=== PATIENT | female | born 1980 | race Caucasian/White ===

== ENCOUNTER 2016-11-22 04:30 | Outpatient (CLI) | payer BC ==
[~2016-11-22] VITALS: Ht 160 cm; Wt 68.7 kg
[2016-11-22 04:51] VITALS: BP 112/74; PULSE 103; RESP 18
[2016-11-22] MEDS ORDERED: LACTATED RINGER'S 1,000 ML IV ONE (05:30)
[2016-11-22 05:47] LABS: ADD SCAN DIFF NO
[2016-11-22 05:56] LABS: BASOPHILS % 0.3 % (0.0-2.0); EOSINOPHILS # 0.1 10^3/ul (0.0-0.5); EOSINOPHILS % 0.7 % (0.0-7.0); HEMATOCRIT 36.2 % (37.0-47.0); HEMOGLOBIN 12.3 g/dl (12.0-16.0); LYMPHOCYTES # 1.1 10^3/ul (0.8-2.9); LYMPHOCYTES % 9.3 % (15.0-51.0); MEAN CORPUSCULAR HEMOGLOBIN 30.6 pg (29.0-33.0); MEAN PLATELET VOLUME 10.4 fl (7.4-10.4); MONOCYTE # 0.6 10^3/ul (0.3-0.9); MONOCYTES % 5.4 % (0.0-11.0); NEUTROPHIL # 9.9 10^3/ul (1.6-7.5); NEUTROPHILS % 83.5 % (39.0-77.0); PLATELET COUNT 253 10^3/UL (140-415); RED BLOOD COUNT 4.02 10^6/ul (4.20-5.40); RED CELL DISTRIBUTION WIDTH 13.2 % (11.5-14.5); WHITE BLOOD COUNT 11.9 10^3/ul (4.8-10.8)
[2016-11-22] MEDS ORDERED: LACTATED RINGER'S 1,000 ML IV SCH (06:00)
[2016-11-22] MEDS ORDERED: ONDANSETRON INJ 8 MG in DEXTROSE 5% 50 ML IV PRN (06:00)
[2016-11-22 06:10] LABS: ALBUMIN 3.4 g/dl (3.3-4.9)
[2016-11-22 06:11] LABS: POTASSIUM 3.5 mmol/L (3.5-5.1)
[2016-11-22 06:13] LABS: ALBUMIN/GLOBULIN RATIO 0.89; BILIRUBIN,INDIRECT 0.3 mg/dl (0-1.1); BILIRUBIN,TOTAL 0.3 mg/dl (0.2-1.3); CREATININE 0.49 mg/dl (0.44-1.00); TOTAL PROTEIN 7.2 g/dl (6.1-8.1)
[2016-11-22 06:14] LABS: CALCIUM 8.9 mg/dl (8.4-10.2)
[2016-11-22 06:19] LABS: ADD UMIC YES; URINE BILIRUBIN (Dip) NEGATIVE (NEGATIVE); URINE BLOOD (Dip) NEGATIVE (NEGATIVE); URINE COLOR YELLOW (YELLOW); URINE GLUCOSE (Dip) NEGATIVE (NEGATIVE); URINE KETONES (Dip) 15 (NEGATIVE); URINE LEUKOCYTE ESTERASE (Dip) TRACE (NEGATIVE); URINE NITRITE (Dip) NEGATIVE (NEGATIVE); URINE TOTAL PROTEIN (Dip) TRACE (NEGATIVE); URINE UROBILINOGEN (Dip) 1.0 E.U./dL (0.1-1.0)
[2016-11-22 07:15] LABS: BACTERIA,URINE FEW; MUCUS,URINE FEW; URINE RBCS NONE SEEN /HPF (0)
--- NOTE | 2016-11-22 08:18 | RADRPT ---
PROCEDURE: US OB. CLINICAL INDICATION: labor. BRAULIO. TECHNIQUE: Multiple sonographic images of the pelvis were obtained. Transabdominal imaging only w as performed. The images were reviewed on a PACS workstation. COMPARISON: None available. FINDINGS: The cervix is closed with a length of 3.7 cm. There is a single viable intrauterine gestation. Cardiac activity is present with a heart rate of 1 40 bpm. There is a breech presentation. Measurements were made in order to determine age. The results are as follows: BPD = 6.79 cm HC = 25.45 cm AC = 22.7 cm FL = 4.34 cm Estimated gestational age of approximately 26 weeks 4 days. The estimated date of delivery is 02/24/2017. The EFW = 903.92 g, at the 78.9 percentile. The placenta is posterior, grade 1. There is no evidence for an abruption or placenta previa. There is a normal amount of amniotic fluid with an BRAULIO = 20 cm. IMPRESSION: 1. Single viable intrauterine gestation of approximately 26 weeks 4 days. 2. The estimated date of delivery is 02/24/2017. 3. Normal BRAULIO. RPTAT: GG .Howard Salazar MD, Date Time Electronically viewed and signed by .Howard Salazar MD, MD on 11/22/2016 08:18 .P/
--- NOTE | 2016-11-22 11:01 | CONS ---
Date/Time of Note Date/Time of Note DATE: 11/22/16 TIME: 10:50 Consultation Date/Type/Reason Admit Date/Time November 22, 2006 OB triage consult Reason for Consultation This patient is a 36 years old 3 para 1, ectopic 1, one living child, who came to the triage area complaining of nausea vomiting and abdominal pain she had 1 spontaneous vaginal delivery in the past and an ectopic .She also cholelithiasis in her past history . She says she is going to [facility] for her care and will deliver at [facility]. On examination she is a well-developed well-nourished woman is complaining of a slight headache and back pain abdominal pain. Her vital signs appears to be within normal. Blood pressure 112/74, pulse 103, respiration 18, temperature 98. On her lab studies the result are compatible with slight dehydration with potassium of 3.5 sodium 138 her.Liver function test were all within normal limits ,her CBC shows a WBC is 11.9 hemoglobin 12.3 and hematocrit 36.2 neutrophil is around 80 3. and the rest of the tests are normal .Her urine exam , urine leukoesterase a slightly elevated ,other than that the urine was negative. We ordered an ultrasound study; the report is that, the cervix was closed, cervical length was reported 3.7 cm and a single viable intrauterine gestation with cardiac activity of 1 40 bpm in breech presentation. Estimated weight was 913.92 g 78.9 percentile which gives a due date of 02/24/2017. Her amniotic fluid index was 20 cm Laboratory Tests Test 11/22/16 05:06 11/22/16 05:30 11/22/16 07:56 White Blood Count 11.910^3/ul Red Blood Count 4.0210^6/ul Hemoglobin 12.3g/dl Hematocrit 36.2% Mean Corpuscular Volume 90.0fl Mean Corpuscular Hemoglobin 30.6pg Mean Corpuscular Hemoglobin Concent 34.0g/dl Red Cell Distribution Width 13.2% Platelet Count 99336^3/UL Mean Platelet Volume 10.4fl Neutrophils % 83.5% Lymphocytes % 9.3% Monocytes % 5.4% Eosinophils % 0.7% Basophils % 0.3% Nucleated Red Blood Cells % 0.0/100WBC Neutrophils # 9.910^3/ul Lymphocytes # 1.110^3/ul Monocytes # 0.610^3/ul Eosinophils # 0.110^3/ul Basophils # 0.010^3/ul Nucleated Red Blood Cells # 0.010^3/ul Sodium Level 138mmol/L Potassium Level 3.5mmol/L Chloride Level 103mmol/L Carbon Dioxide Level 23mmol/L Anion Gap 16 Blood Urea Nitrogen 10mg/dl Creatinine 0.49mg/dl Glucose Level 94mg/dl Calcium Level 8.9mg/dl Total Bilirubin 0.3mg/dl Direct Bilirubin 0.00mg/dl Indirect Bilirubin 0.3mg/dl Aspartate Amino Transf (AST/SGOT) 22IU/L Alanine Aminotransferase (ALT/SGPT) 33IU/L Alkaline Phosphatase 66IU/L Total Protein 7.2g/dl Albumin 3.4g/dl Globulin 3.80g/dl Albumin/Globulin Ratio 0.89 Urine Color YELLOW Urine Clarity CLEAR Urine pH 6.0 Urine Specific [place] 1.025 Urine Ketones 15 Urine Nitrite NEGATIVE Urine Bilirubin NEGATIVE Urine Urobilinogen 1.0 E.U./dL Urine Leukocyte Esterase TRACE Urine Microscopic RBC NONE SEEN/HPF Urine Microscopic WBC 0-2/HPF Urine Epithelial Cells FEW Urine Bacteria FEW Urine Mucus FEW Urine Hemoglobin NEGATIVE Urine Glucose NEGATIVE% Urine Total Protein TRACE Fibronectin NEGATIVE Current Medications Medications (Trade) Dose Ordered Sig/Marisol Route PRN Reason Start Time Stop Time Status Last Admin Dose Admin Lactated Ringer's 1,000 ml @ 1,000 mls/hr Q1H ONCE IV 11/22/16 05:30 11/22/16 06:29 DC 11/22/16 05:32 1,000 MLS/HR Lactated Ringer's 1,000 ml @ 125 mls/hr Q8H IV 11/22/16 06:00 11/22/16 06:08 125 MLS/HR Ondansetron HCl/ Dextrose (Zofran Inj/D5W) 54 ml @ 108 mls/hr Q6H PRN IV NAUSEA AND/OR VOMITING 11/22/16 06:00 11/22/16 06:08 108 MLS/HR Constitutional: No chills, No diaphoresis, No disoriented, No febrile, No improved, No no complaints, No other, No poor po, No requiring IVF, No requiring O2 ENT: No bleeding, No congestion, No discharge, No dysphagia, No no complaints, No other, No pain, No sore throat Respiratory: No cough, No no complaints, No other, No pain, No pleuritic pain, No shortness of breath, No sputum, No wheezing Cardiovascular: No chest pain, No edema, No lightheadedness, No no complaints, No orthopenea, No other, No palpitations, No paroxysmal nocturnal dyspnea Gastrointestinal: nausea (Slight nausea no diarrhea), No blood, No constipation, No decreased appetite, No diarrhea, No flatus, No no complaints, No other, No pain, No passing stool, No vomiting Genitourinary: No bleeding, No discharge, No dysuria, No flank pain, No hematuria, No no complaints Musculoskeletal: No back pain, No bone/joint pain, No neck pain, No no complaints, No other, No restricted range of motion, No swelling Skin: No bruising, No erythema, No laceration, No no complaints, No other, No pruritis, No rash, No skin lesions Neurologic: No confusion, No dizziness, No focal-weakness, No headache, No no complaints, No other, No seizure, No syncope Endocrine: No dry skin, No no complaints, No other, No polydypsia, No polyuria , No temp intolerance Additional Comments IV hydration was given.Due to nausea she was given Zofran 8 mg IV Patient gradually improved and was discharged home to be followed in her obstetrical clinic Social History Smoking Status: Never smoker Exam/Review of Systems Vital Signs Vitals Vital Signs Date Time Temp Pulse Resp B/P Pulse Ox O2 Delivery O2 Flow Rate FiO2 11/22/16 04:51 98.1 103 18 112/74 Room Air Intake and Output 11/21/16 11/21/16 11/22/16 14:59 22:59 06:59 Intake Total 1000 ml Balance 1000 ml Results Result Diagram: 11/22/16 0506 11/22/16 0506 Results 24 hrs Laboratory Tests Test 11/22/16 05:06 11/22/16 05:30 11/22/16 07:56 White Blood Count 11.9 H Red Blood Count 4.02 L Hemoglobin 12.3 Hematocrit 36.2 L Mean Corpuscular Volume 90.0 Mean Corpuscular Hemoglobin 30.6 Mean Corpuscular Hemoglobin Concent 34.0 Red Cell Distribution Width 13.2 Platelet Count 253 Mean Platelet Volume 10.4 Neutrophils % 83.5 H Lymphocytes % 9.3 L Monocytes % 5.4 Eosinophils % 0.7 Basophils % 0.3 Nucleated Red Blood Cells % 0.0 Neutrophils # 9.9 H Lymphocytes # 1.1 Monocytes # 0.6 Eosinophils # 0.1 Basophils # 0.0 Nucleated Red Blood Cells # 0.0 Sodium Level 138 Potassium Level 3.5 Chloride Level 103 Carbon Dioxide Level 23 Anion Gap 16 Blood Urea Nitrogen 10 Creatinine 0.49 Glucose Level 94 Calcium Level 8.9 Total Bilirubin 0.3 Direct Bilirubin 0.00 Indirect Bilirubin 0.3 Aspartate Amino Transf (AST/SGOT) 22 Alanine Aminotransferase (ALT/SGPT) 33 Alkaline Phosphatase 66 Total Protein 7.2 Albumin 3.4 Globulin 3.80 H Albumin/Globulin Ratio 0.89 Urine Color YELLOW Urine Clarity CLEAR Urine pH 6.0 Urine Specific [place] 1.025 Urine Ketones 15 Urine Nitrite NEGATIVE Urine Bilirubin NEGATIVE Urine Urobilinogen 1.0 E.U./dL Urine Leukocyte Esterase TRACE H Urine Microscopic RBC NONE SEEN Urine Microscopic WBC 0-2 Urine Epithelial Cells FEW Urine Bacteria FEW Urine Mucus FEW Urine Hemoglobin NEGATIVE Urine Glucose NEGATIVE Urine Total Protein TRACE Fibronectin NEGATIVE Medications Medications Current Medications Lactated Ringer's 1,000 ml @ 125 mls/hr Q8H IV Last administered on 11/22/16 06:08; Admin Dose 125 MLS/HR; Start 11/22/16 at 06:00 Ondansetron HCl/ Dextrose (Zofran Inj/D5W) 54 ml @ 108 mls/hr Q6H PRN IV NAUSEA AND/OR VOMITING Last administered on 11/22/16 06:08; Admin Dose 108 MLS/ HR; Start 11/22/16 at 06:00 NBA GONZALEZ MD November 22, 2016 11:00
--- NOTE | 2016-11-22 11:07 | TRIAGE ---
OB Triage Datetime Report Generated by CPN: 11/22/2016 11:06 Datetime: 11/22/2016 10:00 Labor Evaluation Frequency: X2 Monitor Mode: External Duration (sec)2399: 40 Quality: Mild Pattern: Normal: <= 5 Contractions in 10 Minutes Resting Tone Seltzer: Relaxed Heart Rate FHR Baseline Rate: 140 Monitor Mode: External US Pain Assessment Pain Scale: 0 Pain Presence: None/Denies Pain Type: N/A Pain Goal: 0 Datetime: 11/22/2016 09:00 Labor Evaluation Frequency: X3 Monitor Mode: External Duration (sec)2399: 40-60 Quality: Mild Pattern: Normal: <= 5 Contractions in 10 Minutes Resting Tone Seltzer: Relaxed Heart Rate FHR Baseline Rate: 140 Monitor Mode: External US FHR Baseline Changes: No Baseline Change Pain Assessment Pain Scale: 0 Pain Presence: None/Denies Pain Type: N/A Pain Goal: 0 Datetime: 11/22/2016 07:57 Labor Evaluation Frequency: 2-6 Monitor Mode: External Quality: Mild Pattern: Normal: <= 5 Contractions in 10 Minutes Resting Tone Seltzer: Relaxed Heart Rate FHR Baseline Rate: 140 Monitor Mode: External US FHR Baseline Changes: No Baseline Change Variability: Moderate 6-25 bpm Category: Category I Pain Assessment Pain Scale: 0 Pain Presence: None/Denies Pain Type: N/A Pain Goal: 0 Vaginal Exam Membrane Status: Intact Datetime: 11/22/2016 06:24 Vaginal Exam Membrane Status: Intact Datetime: 11/22/2016 06:08 Monitor Mode: External Quality: Mild Pattern: Normal: <= 5 Contractions in 10 Minutes Resting Tone Seltzer: Relaxed Heart Rate FHR Baseline Rate: 140 Monitor Mode: External US FHR Baseline Changes: No Baseline Change Variability: Moderate 6-25 bpm Accelerations: 10X10 Datetime: 11/22/2016 05:30 Monitor Mode: External Quality: Mild Pattern: Normal: <= 5 Contractions in 10 Minutes Resting Tone Seltzer: Relaxed Heart Rate FHR Baseline Rate: 140 Monitor Mode: External US FHR Baseline Changes: No Baseline Change Variability: Moderate 6-25 bpm Datetime: 11/22/2016 05:20 Stage of : OB Triage Monitor Mode: External Pattern: Normal: <= 5 Contractions in 10 Minutes Resting Tone Seltzer: Relaxed Heart Rate FHR Baseline Rate: 140 Monitor Mode: External US FHR Baseline Changes: No Baseline Change Variability: Moderate 6-25 bpm Category: Category I Datetime: 11/22/2016 04:49 EGA: 25.2 Datetime: 11/22/2016 04:46 Time of Arrival: 11/22/2016 04:30 Arrived By: Wheelchair Arrived From: Other Unit in Hospital Chief Complaint: brought from pediatrics where son is pt. States has had hyperemesis though b serafin last month. mTonight has vomited "too many times". Movement: Present Rupture of Membranes: Denies Vaginal Discharge: Denies Recent Sexual Intercouse: Denies Abdominal Trauma: Not Applicable Patient Complaints: Nausea; Vomiting Time Provider Notified: 11/22/2016 05:20 Provider Notified: DR. HERNANDEZ Initial Plan: EFM Datetime: 11/22/2016 04:42 Maternal Assessment Level of Consciousness: Fully Conscious Headache: Denies Blurred Vision: No Nausea/Vomiting: Present RUQ Epigastric Pain: Denies Facial Edema: None Monitor Mode: External Resting Tone Seltzer: Relaxed Heart Rate FHR Baseline Rate: 140 Monitor Mode: External US
== END 2016-11-22 10:50 | disposition home or self-care (01) ==
LOC: L-D 04:30 → OBT 04:30
PROVIDERS: ATTEND Obstetrics & Gynecology Obstetrics
DX: O21.2 Late vomiting of pregnancy (principal); O26.892 Other specified pregnancy related conditions, second trimester; R10.9 Unspecified abdominal pain; Z3A.26 26 weeks gestation of pregnancy
CPT/HCPCS: 36415; 76815; 76817; 80053; 81001; 81003; 82731; 85025; 87086; 96360; 96361; 96365; G0463; J7120